=== PATIENT | female | born 1945 | race African-American/Black ===

== ENCOUNTER 2021-11-20 21:59 | Inpatient (IN) | payer OTHER ==
[2021-11-20] MEDS ORDERED: ACETAMINOPHEN 1000 MG/100 ML BAG IVPB ONE (22:24)
[2021-11-20] MEDS ORDERED: LACTATED RINGERS SOLUTION 1000 ML INFUS.BAG IV ONE (22:24)
[2021-11-20] MEDS ORDERED: ACETAMINOPHEN INJECTION 100 ML IVPB ONE (22:40)
[2021-11-20 23:06] LABS: BASO % 0.4 % (0-2.0); EOS % 0.6 % (0-4.5); HEMATOCRIT 36.2 % (32.4-45.2); HEMOGLOBIN 12.1 GM/dL (10.7-15.3); LYMPH % 12.7 % (8-40); MCH 29.3 pg (25.7-33.7); MCHC 33.3 g/dl (32.0-36.0); MEAN CELL VOLUME 87.8 fl (80-96); MEAN PLT VOLUME 7.9 fl (7.5-11.1); NEUT % 80.3 % (42.8-82.8); PLATELET COUNT 297 10^3/uL (134-434); RBC 4.12 M/mm3 (3.60-5.2); RDW 13.4 % (11.6-15.6); WHITE BLOOD COUNT 9.6 K/mm3 (4.0-10.0)
[2021-11-20] MEDS ORDERED: METOPROLOL TARTRATE 50 MG TABLET (FP) PO ONE (23:41)
[2021-11-21] MEDS ORDERED: METOPROLOL TARTRATE 50 MG TABLET (FP) ONE (00:33)
[2021-11-21 01:02] LABS: ALBUMIN 3.9 g/dl (3.4-5.0); CALCIUM 10.3 mg/dL (8.5-10.1)
[2021-11-21 01:03] LABS: BLOOD UREA NITROGEN 19.1 mg/dL (7-18)
[2021-11-21 01:06] LABS: CREATININE 1.1 mg/dL (0.55-1.3)
[2021-11-21 01:07] LABS: BILIRUBIN,TOTAL 0.4 mg/dL (0.2-1); TOT PROT 7.1 g/dl (6.4-8.2)
[2021-11-21] MEDS ORDERED: SODIUM CHLORIDE 0.9% 500 ML INFUS.BAG IV ONE (01:17)
[2021-11-21 02:39] LABS: EPI CELLS >36 /uL (0-25.1); HYALINE CASTS 1 /uL (0-3.1); URINE APPEARANCE CLEAR; URINE BACTERIA 611 /uL (0-1359); URINE BILIRUBIN NEGATIVE (NEGATIVE); URINE COLOR DK YELLOW; URINE GLUCOSE (UA) NEGATIVE (NEGATIVE); URINE KETONE 1+ (NEGATIVE); URINE LEUK ESTERASE 1+ (NEGATIVE); URINE NITRITE NEGATIVE (NEGATIVE); URINE PROTEIN NEGATIVE (NEGATIVE); URINE RBC 7 /uL (0-23.9); URINE UROBILINOGEN 0.2 mg/dL (0.2-1.0); URINE WBC 92 /uL (0-25.8)
[2021-11-21] MEDS ORDERED: CEFTRIAXONE 1 GM in DEXTROSE 5%-WATER - 50 ML IVPB SCH (04:45)
[2021-11-21] MEDS ORDERED: CEFTRIAXONE 1 GM/50 ML BAG ONE ×2 (05:15→10:07)
[2021-11-21 06:35] LABS: BASO % 0.7 % (0-2.0); EOS % 1.5 % (0-4.5); HEMATOCRIT 34.4 % (32.4-45.2); LYMPH % 25.9 % (8-40); MCH 28.6 pg (25.7-33.7); MEAN CELL VOLUME 89.4 fl (80-96); MEAN PLT VOLUME 8.4 fl (7.5-11.1); MONO % 6.5 % (3.8-10.2); NEUT % 65.4 % (42.8-82.8); PLATELET COUNT 282 10^3/uL (134-434); RBC 3.85 M/mm3 (3.60-5.2); RDW 13.2 % (11.6-15.6); WHITE BLOOD COUNT 11.6 K/mm3 (4.0-10.0)
[2021-11-21 07:35] LABS: ALBUMIN 3.2 g/dl (3.4-5.0); CALCIUM 9.1 mg/dL (8.5-10.1)
[2021-11-21 07:36] LABS: BLOOD UREA NITROGEN 15.3 mg/dL (7-18); MAGNESIUM 1.6 mg/dL (1.8-2.4)
[2021-11-21 07:39] LABS: PHOSPHOROUS 2.8 mg/dL (2.5-4.9)
[2021-11-21 07:40] LABS: BILIRUBIN,TOTAL 0.3 mg/dL (0.2-1)
[2021-11-21] MEDS: INSULIN SLIDING SCALE (NOVOLOG) 1 VIAL SQ SCH ×4 (07:55→22:33)
[2021-11-21] MEDS: SODIUM CHLORIDE 1,000 ML IV SCH (08:24)
[2021-11-21] MEDS ORDERED: ACETAMINOPHEN 325 MG TABLET (FP) ONE ×2 (08:29→18:24)
[2021-11-21] MEDS ORDERED: ASPIRIN COATED 81 MG TABLET.EC ONE (08:29)
[2021-11-21] MEDS ORDERED: PANTOPRAZOLE 40 MG TABLET ONE (08:29)
[2021-11-21] MEDS: ACETAMINOPHEN 325 MG TABLET (FP) PO PRN ×2 (08:30→18:30)
[2021-11-21] MEDS: PANTOPRAZOLE 40 MG TABLET PO SCH (09:02)
[2021-11-21] MEDS: ASPIRIN COATED 81 MG TABLET.EC PO SCH (09:02)
[2021-11-21] MEDS ORDERED: INSULIN (LEVEMIR) 100 UNITS/ML UNITS SQ ONE (10:07)
[2021-11-21] MEDS ORDERED: ENOXAPARIN NA (PORCINE) 40 MG/0.4 ML DISP.SYRIN SQ ONE (10:07)
[2021-11-21] MEDS: INSULIN (LEVEMIR) 100 UNITS/ML UNITS SQ SCH ×2 (10:30→22:33)
[2021-11-21] MEDS: ALLOPURINOL 100 MG TABLET (FP) PO SCH (10:45)
[2021-11-21] MEDS: CEFTRIAXONE 1 GM in DEXTROSE 5%-WATER - 50 ML IVPB SCH (10:45)
[2021-11-21] MEDS: VALSARTAN 160 MG TABLET PO SCH (10:45)
[2021-11-21] MEDS: ENOXAPARIN NA (PORCINE) 40 MG/0.4 ML DISP.SYRIN SQ SCH (10:45)
[2021-11-21] MEDS: FLUTICASONE PROP 0.05% 16 GM NASAL SPRAY NS SCH (11:48)
[2021-11-21] MEDS ORDERED: ATORVASTATIN CA 40 MG TABLET (FP) ONE (22:16)
[2021-11-21] MEDS ORDERED: MONTELUKAST NA 10 MG TABLET ONE (22:16)
[2021-11-21] MEDS: MONTELUKAST NA 10 MG TABLET PO SCH (22:24)
[2021-11-21] MEDS: ATORVASTATIN CA 40 MG TABLET (FP) PO SCH (22:24)
[2021-11-22] MEDS ORDERED: ACETAMINOPHEN 1000 MG/100 ML BAG IVPB ONE (04:30)
[2021-11-22] MEDS ORDERED: ACETAMINOPHEN INJECTION 100 ML IVPB ONE (04:38)
[2021-11-22] MEDS: SODIUM CHLORIDE 1,000 ML IV SCH ×2 (05:06→23:30)
[2021-11-22] MEDS: INSULIN (LEVEMIR) 100 UNITS/ML UNITS SQ SCH ×2 (07:45→22:16)
[2021-11-22] MEDS: glipiZIDE-XL 5 MG TAB.ER.24 PO SCH (07:50)
[2021-11-22] MEDS: INSULIN SLIDING SCALE (NOVOLOG) 1 VIAL SQ SCH ×4 (07:55→22:15)
[2021-11-22 08:50] LABS: HEMATOCRIT 37.2 % (32.4-45.2); HEMOGLOBIN 11.9 GM/dL (10.7-15.3); MCH 28.5 pg (25.7-33.7); MEAN PLT VOLUME 8.1 fl (7.5-11.1); PLATELET COUNT 293 10^3/uL (134-434); RBC 4.18 M/mm3 (3.60-5.2); RDW 13.6 % (11.6-15.6); WHITE BLOOD COUNT 8.7 K/mm3 (4.0-10.0)
[2021-11-22] MEDS ORDERED: ASPIRIN COATED 81 MG TABLET.EC ONE (09:15)
[2021-11-22] MEDS ORDERED: PANTOPRAZOLE 40 MG TABLET ONE (09:15)
[2021-11-22] MEDS ORDERED: glipiZIDE 5 MG TABLET (FP) ONE (09:15)
[2021-11-22] MEDS ORDERED: ENOXAPARIN NA (PORCINE) 40 MG/0.4 ML DISP.SYRIN SQ ONE (09:16)
[2021-11-22 09:17] LABS: ALBUMIN 3.6 g/dl (3.4-5.0); BLOOD UREA NITROGEN 10.2 mg/dL (7-18); MAGNESIUM 2.1 mg/dL (1.8-2.4)
[2021-11-22] MEDS ORDERED: CEFTRIAXONE 1 GM/50 ML BAG ONE ×2 (09:17→17:07)
[2021-11-22 09:20] LABS: CREATININE 0.8 mg/dL (0.55-1.3); PHOSPHOROUS 3.1 mg/dL (2.5-4.9)
[2021-11-22 09:22] LABS: BILIRUBIN,TOTAL 0.5 mg/dL (0.2-1); TOT PROT 6.8 g/dl (6.4-8.2)
[2021-11-22] MEDS: FLUTICASONE PROP 0.05% 16 GM NASAL SPRAY NS SCH (09:47)
[2021-11-22] MEDS: PANTOPRAZOLE 40 MG TABLET PO SCH (09:47)
[2021-11-22] MEDS: ASPIRIN COATED 81 MG TABLET.EC PO SCH (09:47)
[2021-11-22] MEDS: VALSARTAN 160 MG TABLET PO SCH (09:47)
[2021-11-22] MEDS: ENOXAPARIN NA (PORCINE) 40 MG/0.4 ML DISP.SYRIN SQ SCH (09:47)
[2021-11-22] MEDS: ALLOPURINOL 100 MG TABLET (FP) PO SCH (09:48)
[2021-11-22] MEDS ORDERED: REGADENOSON 0.4 MG/5 ML PRE-FILLED SYRINGE IVPUSH ONE ×2 (14:03→15:00)
[2021-11-22] MEDS: CEFTRIAXONE 1 GM in DEXTROSE 5%-WATER - 50 ML IVPB SCH (18:11)
[2021-11-22] MEDS ORDERED: ACETAMINOPHEN 325 MG TABLET (FP) ONE (21:48)
[2021-11-22] MEDS ORDERED: ATORVASTATIN CA 40 MG TABLET (FP) ONE (21:49)
[2021-11-22] MEDS ORDERED: MONTELUKAST NA 10 MG TABLET ONE (21:49)
[2021-11-22] MEDS: MONTELUKAST NA 10 MG TABLET PO SCH (21:54)
[2021-11-22] MEDS: ACETAMINOPHEN 325 MG TABLET (FP) PO PRN (21:54)
[2021-11-22] MEDS ORDERED: ATORVASTATIN CA 10 MG TABLET (FP) PO SCH (22:00)
[2021-11-22] MEDS ORDERED: INSULIN (LEVEMIR) 100 UNITS/ML UNITS SQ ONE (22:06)
[2021-11-22] MEDS ORDERED: ATORVASTATIN CA 10 MG TABLET (FP) ONE (22:32)
[2021-11-22 23:42] VITALS: BMI 36.6
[2021-11-23] MEDS: ATORVASTATIN CA 40 MG TABLET (FP) PO SCH (00:15)
[2021-11-23] MEDS: glipiZIDE-XL 5 MG TAB.ER.24 PO SCH (06:23)
[2021-11-23] MEDS: INSULIN SLIDING SCALE (NOVOLOG) 1 VIAL SQ SCH ×3 (06:24→17:50)
[2021-11-23] MEDS ORDERED: INSULIN (LEVEMIR) 100 UNITS/ML UNITS SQ SCH (07:00)
[2021-11-23] MEDS ORDERED: cefTRIAXone SODIUM 1 GM VIAL ONE (09:26)
[2021-11-23] MEDS ORDERED: DEXTROSE 5%-WATER - 50 ML IVPB ONE (09:26)
[2021-11-23] MEDS: CEFTRIAXONE 1 GM in DEXTROSE 5%-WATER - 50 ML IVPB SCH (10:14)
[2021-11-23] MEDS: ENOXAPARIN NA (PORCINE) 40 MG/0.4 ML DISP.SYRIN SQ SCH (10:15)
[2021-11-23] MEDS: ALLOPURINOL 100 MG TABLET (FP) PO SCH (10:16)
[2021-11-23] MEDS: PANTOPRAZOLE 40 MG TABLET PO SCH (10:16)
[2021-11-23] MEDS: ASPIRIN COATED 81 MG TABLET.EC PO SCH (10:16)
[2021-11-23] MEDS: FLUTICASONE PROP 0.05% 16 GM NASAL SPRAY NS SCH (10:16)
[2021-11-23] MEDS: VALSARTAN 160 MG TABLET PO SCH (10:16)
[2021-11-23] MEDS: ACETAMINOPHEN 325 MG TABLET (FP) PO PRN (12:54)
[2021-11-23 14:02] VITALS: BP 122/75; PULSE 66; TEMP 98.5
== END 2021-11-23 19:37 | disposition home health service (06) | DRG 312 ==
LOC: JER 21:59 → JERBED 11-21 02:29 → J4W 11-22 23:23
PROVIDERS: ADMIT Internal Medicine; ATTEND Family Medicine
DX: I95.1 Orthostatic hypotension (principal); E87.1 Hypo-osmolality and hyponatremia; R07.89 Other chest pain; I10 Essential (primary) hypertension; E86.0 Dehydration; E11.40 Type 2 diabetes mellitus with diabetic neuropathy, unspecified; E66.9 Obesity, unspecified; Z68.36 Body mass index [BMI] 36.0-36.9, adult; E78.5 Hyperlipidemia, unspecified
CPT/HCPCS: 36415; 70450-TC; 70551-TC; 71046-TC-FY; 78452-TC; 80053; 80061; 81003; 82010; 82550; 82962; 83036; 83735; 84100; 84443; 84484; 85025; 85027; 85651; 86140; 87086; 93005; 93010; 93017; 97116-GP; 97161-GP; 99285-25; A9502; C9803; J0131; J2785; U0003; U0005

== ENCOUNTER 2022-08-19 20:42 | Emergency (ER) | payer OTHER ==
[2022-08-19 20:47] VITALS: BP 163/90; PULSE 96; RESP 20; TEMP 97.9; BMI 30.7
[2022-08-19] MEDS ORDERED: ACETAMINOPHEN 1000 MG/100 ML BAG IVPB ONE (22:30)
[2022-08-19] MEDS ORDERED: ACETAMINOPHEN INJECTION 100 ML IVPB ONE (22:53)
[2022-08-19 23:21] LABS: BASO % 0.9 % (0-2.0); EOS % 0.6 % (0-4.5); HEMATOCRIT 39.3 % (32.4-45.2); HEMOGLOBIN 13.1 GM/dL (10.7-15.3); MCH 28.8 pg (25.7-33.7); MCHC 33.4 g/dl (32.0-36.0); MEAN CELL VOLUME 86.5 fl (80-96); MEAN PLT VOLUME 7.8 fl (7.5-11.1); MONO % 7.1 % (3.8-10.2); NEUT % 73.4 % (42.8-82.8); PLATELET COUNT 316 10^3/uL (134-434); RBC 4.54 M/mm3 (3.60-5.2); RDW 13.8 % (11.6-15.6); WHITE BLOOD COUNT 10.5 K/mm3 (4.0-10.0)
[2022-08-19 23:43] LABS: BLOOD UREA NITROGEN 14.7 mg/dL (7-18)
[2022-08-19 23:47] LABS: BILIRUBIN,TOTAL 0.4 mg/dL (0.2-1)
[2022-08-19 23:48] LABS: TOT PROT 7.4 g/dl (6.4-8.2)
[2022-08-19 23:50] LABS: N-TERMINAL BNP 31.4 pg/ml (5-450)
== END 2022-08-20 03:36 | disposition home or self-care (01) ==
LOC: JER 20:42
PROC: 3E033NZ Introduction of Analgesics, Hypnotics, Sedatives into Peripheral Vein, Percutaneous Approach (ICD-10-PCS; principal; 2022-08-19)
DX: R51.9 Headache, unspecified (principal)
CPT/HCPCS: 0241U-QW; 36415; 71045-TC-FY; 80053; 82962; 83880; 84484; 85025; 93005; 93010; 99284-25

== ENCOUNTER 2022-11-08 16:08 | Emergency (ER) | payer OTHER ==
[2022-11-08 16:17] VITALS: BP 159/64; PULSE 75; RESP 20; TEMP 99.1; BMI 30.9
[2022-11-08] MEDS ORDERED: SODIUM CHLORIDE 0.9% 500 ML INFUS.BAG IV ONE (18:08)
[2022-11-08] MEDS ORDERED: METOCLOPRAMIDE HCL INJECTION 10 MG/2 ML VIAL IVPUSH ONE (18:08)
[2022-11-08] MEDS ORDERED: METOCLOPRAMIDE HCL INJECTION 10 MG/2 ML VIAL ONE (18:17)
[2022-11-08 19:27] LABS: EOS % 0.8 % (0-4.5); HEMATOCRIT 42.2 % (32.4-45.2); HEMOGLOBIN 13.8 GM/dL (10.7-15.3); LYMPH % 20.5 % (8-40); MCH 28.8 pg (25.7-33.7); MCHC 32.6 g/dl (32.0-36.0); MEAN CELL VOLUME 88.4 fl (80-96); MEAN PLT VOLUME 8.4 fl (7.5-11.1); MONO % 5.9 % (3.8-10.2); NEUT % 71.8 % (42.8-82.8); PLATELET COUNT 372 10^3/uL (134-434); RBC 4.78 M/mm3 (3.60-5.2); RDW 13.3 % (11.6-15.6); WHITE BLOOD COUNT 12.6 K/mm3 (4.0-10.0)
[2022-11-08 19:48] LABS: CALCIUM 10.1 mg/dL (8.5-10.1)
[2022-11-08 19:49] LABS: ALBUMIN 3.8 g/dl (3.4-5.0); BLOOD UREA NITROGEN 11.6 mg/dL (7-18); MAGNESIUM 1.9 mg/dL (1.8-2.4)
[2022-11-08 19:52] LABS: PHOSPHOROUS 3.2 mg/dL (2.5-4.9)
[2022-11-08 19:53] LABS: BILIRUBIN,TOTAL 0.4 mg/dL (0.2-1); TOT PROT 7.5 g/dl (6.4-8.2)
[2022-11-08 19:57] LABS: N-TERMINAL BNP 42.2 pg/ml (5-450)
[2022-11-08 21:23] LABS: PH,URINE 5.5 (5.0-8.0); URINE APPEARANCE CLEAR; URINE BILIRUBIN NEGATIVE (NEGATIVE); URINE COLOR YELLOW; URINE GLUCOSE (UA) NEGATIVE (NEGATIVE); URINE KETONE NEGATIVE (NEGATIVE); URINE LEUK ESTERASE NEGATIVE (NEGATIVE); URINE NITRITE NEGATIVE (NEGATIVE); URINE PROTEIN NEGATIVE (NEGATIVE); URINE UROBILINOGEN 0.2 mg/dL (0.2-1.0)
== END 2022-11-08 22:45 | disposition home or self-care (01) ==
LOC: JER 16:08
PROC: 3E033GC Introduction of Other Therapeutic Substance into Peripheral Vein, Percutaneous Approach (ICD-10-PCS; principal; 2022-11-08)
DX: R53.1 Weakness (principal)
CPT/HCPCS: 0241U-QW; 36415; 71045-TC-FY; 80053; 81003; 83735; 83880; 84100; 84484; 85025; 87086; 99284-25

== ENCOUNTER 2023-04-10 16:48 | Emergency (ER) | payer OTHER ==
[2023-04-10 17:03] VITALS: BP 130/50; PULSE 66; RESP 17; TEMP 98.7; BMI 29.9
== END 2023-04-10 19:23 | disposition home or self-care (01) ==
LOC: JER 16:48
DX: R05.9 Cough, unspecified (principal); R07.82 Intercostal pain; J02.9 Acute pharyngitis, unspecified
CPT/HCPCS: 93005; 93010; 99283-25

== ENCOUNTER 2023-11-19 21:13 | Observation (INO) | payer OTHER ==
[2023-11-19 21:20] VITALS: BMI 29.9
[2023-11-19] MEDS ORDERED: SODIUM CHLORIDE 500 ML IV STA (22:00)
[2023-11-19 22:59] LABS: BASO % 0.7 % (0-2.0); HEMATOCRIT 41.2 % (32.4-45.2); HEMOGLOBIN 13.7 GM/dL (10.7-15.3); LYMPH % 18.4 % (8-40); MCH 29.3 pg (25.7-33.7); MCHC 33.4 g/dl (32.0-36.0); MEAN CELL VOLUME 87.8 fl (80-96); MEAN PLT VOLUME 7.9 fl (7.5-11.1); MONO % 6.7 % (3.8-10.2); NEUT % 72.2 % (42.8-82.8); PLATELET COUNT 307 10^3/uL (134-434); RBC 4.68 M/mm3 (3.60-5.2); RDW 13.6 % (11.6-15.6); WHITE BLOOD COUNT 10.5 K/mm3 (4.0-10.0)
[2023-11-19 23:06] LABS: INR 1.06 (0.83-1.09); PROTHROMBIN TIME (PATIENT) 12.3 SEC (9.7-13.0)
[2023-11-19 23:09] LABS: ACTIVATED PTT 29.6 SECONDS (25.2-36.5)
[2023-11-19 23:27] LABS: POTASSIUM 3.8 mmol/L (3.5-5.1)
[2023-11-19 23:30] LABS: ALBUMIN 3.8 g/dl (3.4-5.0); BLOOD UREA NITROGEN 11.9 mg/dL (7-18)
[2023-11-19 23:34] LABS: BILIRUBIN,TOTAL 0.5 mg/dL (0.2-1); TOT PROT 7.4 g/dl (6.4-8.2)
[2023-11-20 00:52] LABS: EPI CELLS 23 /uL (0-25.1); HYALINE CASTS 0 /uL (0-3.1); PH,URINE 7.5 (5.0-8.0); URINE APPEARANCE CLEAR; URINE BACTERIA 531 /uL (0-1359); URINE BILIRUBIN NEGATIVE (NEGATIVE); URINE COLOR YELLOW; URINE GLUCOSE (UA) NEGATIVE (NEGATIVE); URINE KETONE NEGATIVE (NEGATIVE); URINE LEUK ESTERASE TRACE (NEGATIVE); URINE NITRITE NEGATIVE (NEGATIVE); URINE PROTEIN NEGATIVE (NEGATIVE); URINE RBC 6 /uL (0-23.9); URINE UROBILINOGEN 0.2 mg/dL (0.2-1.0); URINE WBC 7 /uL (0-25.8)
[2023-11-20] MEDS ORDERED: VALSARTAN 80 MG TABLET ONE ×2 (02:29→09:55)
[2023-11-20] MEDS: VALSARTAN 160 MG TABLET PO SCH ×3 (02:33→21:57)
[2023-11-20 07:43] LABS: HEMOGLOBIN 13.3 GM/dL (10.7-15.3); MCH 29.6 pg (25.7-33.7); MCHC 33.2 g/dl (32.0-36.0); MEAN CELL VOLUME 89.3 fl (80-96); PLATELET COUNT 290 10^3/uL (134-434); RBC 4.48 M/mm3 (3.60-5.2); RDW 13.3 % (11.6-15.6)
[2023-11-20 07:53] LABS: POTASSIUM 3.9 mmol/L (3.5-5.1)
[2023-11-20 08:13] LABS: CALCIUM 10.3 mg/dL (8.5-10.1)
[2023-11-20 08:14] LABS: ALBUMIN 3.3 g/dl (3.4-5.0); BLOOD UREA NITROGEN 8.8 mg/dL (7-18)
[2023-11-20 08:17] LABS: CREATININE 0.8 mg/dL (0.55-1.3); PHOSPHOROUS 3.3 mg/dL (2.5-4.9)
[2023-11-20 08:18] LABS: BILIRUBIN,TOTAL 0.5 mg/dL (0.2-1); TOT PROT 6.5 g/dl (6.4-8.2)
[2023-11-20] MEDS: INSULIN ASPART SLIDING SCALE (NOVOLOG) 1 VIAL SQ SCH (21:59)
[2023-11-20] MEDS: FLUTICASONE PROP 0.05% 16 GM NASAL SPRAY NS SCH (22:18)
[2023-11-21] MEDS: INSULIN ASPART SLIDING SCALE (NOVOLOG) 1 VIAL SQ SCH ×4 (06:24→21:51)
[2023-11-21] MEDS: INSULIN (LEVEMIR) 100 UNITS/ML UNITS SQ SCH (06:26)
[2023-11-21] MEDS ORDERED: ACETAMINOPHEN 325 MG TABLET (FP) PO PRN (08:23)
[2023-11-21] MEDS: VALSARTAN 160 MG TABLET PO SCH ×2 (09:25→21:50)
[2023-11-21] MEDS: FLUTICASONE PROP 0.05% 16 GM NASAL SPRAY NS SCH ×2 (09:25→21:51)
[2023-11-22 01:51] VITALS: RESP 18
[2023-11-22] MEDS: INSULIN ASPART SLIDING SCALE (NOVOLOG) 1 VIAL SQ SCH ×2 (06:37→12:01)
[2023-11-22] MEDS: INSULIN (LEVEMIR) 100 UNITS/ML UNITS SQ SCH (06:38)
[2023-11-22] MEDS: FLUTICASONE PROP 0.05% 16 GM NASAL SPRAY NS SCH (09:17)
[2023-11-22] MEDS: VALSARTAN 160 MG TABLET PO SCH (09:18)
[2023-11-22] MEDS ORDERED: INSULIN ASPART SLIDING SCALE (NOVOLOG) 1 VIAL SQ ONE (12:05)
[2023-11-22 15:09] VITALS: BP 137/67; PULSE 63; TEMP 98.1
== END 2023-11-22 16:43 | disposition home or self-care (01) ==
LOC: JER 21:13 → JERBED 11-20 01:17 → J4S 11-20 20:19
PROVIDERS: ADMIT Family Medicine; ATTEND Family Medicine
PROC: 3E013VG Introduction of Insulin into Subcutaneous Tissue, Percutaneous Approach (ICD-10-PCS; principal; 2023-11-20)
PROC: 3E0337Z Introduction of Electrolytic and Water Balance Substance into Peripheral Vein, Percutaneous Approach (ICD-10-PCS; 2023-11-20)
DX: N17.9 Acute kidney failure, unspecified (principal); E11.618 Type 2 diabetes mellitus with other diabetic arthropathy; R09.02 Hypoxemia; E78.5 Hyperlipidemia, unspecified; I10 Essential (primary) hypertension; R42 Dizziness and giddiness; R26.81 Unsteadiness on feet; Z72.0 Tobacco use; Z88.0 Allergy status to penicillin
CPT/HCPCS: 0241U-QW; 36415; 70450-TC; 71045-TC-FY; 80053; 81003; 82962; 83036; 83735; 84100; 84484; 85025; 85027; 85610; 85730; 87086; 93005; 93010; 93306-TC; 93880-TC; 96360; 96372; 97116-GP; 97161-GP; 99285-25; G0378